=== PATIENT | female | born 1995 | race Caucasian/White ===

== ENCOUNTER 2017-06-08 01:12 | Emergency (ER) | payer OTHER ==
[2017-06-08 01:34] VITALS: BP 100/69; PULSE 103; TEMP 98.4; BMI 18.1
[2017-06-08] MEDS ORDERED: DOXYCYCLINE HYCLATE 100 MG CAPSULE PO ONE ×2 (01:38→01:41)
--- NOTE | 2017-06-08 01:38 | PDOC ---
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 Patient denies any trauma to the area. Denies exposure to new fluids, soap, or detergent. Denies fever, chills, or diaphoresis. Denies any other lesions. States she recently went to [place] for a week and returned a few days ago. The patient denies cough, SOB, chest pain, and palpitations. The patient denies abdominal pain, nausea, vomiting, and diarrhea. Allergies: cefazolin Social History: No alcohol, tobacco, or drug use reported. Past Surgical History: None reported PCP: Dr. Ulises Finch <Ciera Rivero - Last Filed: 06/08/17 01:52> - General History Source: Patient, Parent(s) <Vinnie Niño - Last Filed: 06/08/17 06:15> - General Chief Complaint: Rash Stated Complaint: RASH/FEET Time Seen by Provider: 06/08/17 01:33 Past History <Ciera Rivero - Last Filed: 06/08/17 01:52> - Past Medical History Cancer: Yes (Osteosarcoma CA on Lt leg) - Psycho/Social/Smoking Cessation Hx Suicidal Ideation: No Smoking History: Never smoked Have you smoked in the past 12 months: No Number of Cigarettes Smoked Daily: 0 Information on smoking cessation initiated: No Hx Alcohol Use: No Drug/Substance Use Hx: No Substance Use Type: None <Vinnie Niño - Last Filed: 06/08/17 06:15> - Past Medical History Allergies/Adverse Reactions: Allergies Allergy/AdvReac Type Severity Reaction Status Date / Time cefazolin Allergy Verified 06/08/17 01:30 Home Medications: Ambulatory Orders Doxycycline Hyclate [Vibramycin] 100 mg PO BID #20 capsule 06/08/17 Review of Systems - Review of Systems Able to Perform ROS?: Yes Comments:: 06/08/17 01:53 CONSTITUTIONAL: Absent: fever, no chills, no fatigue EYES: Absent: visual changes ENT: Absent: ear pain, no sore throat CARDIOVASCULAR: Absent: chest pain, no palpitations RESPIRATORY: Absent: cough, no SOB GI: Absent: abdominal pain, no nausea, no vomiting, no constipation, no diarrhea GENITOURINARY: Absent: dysuria, no frequency, no hematuria MUSCULOSKELETAL: Absent: back pain, no arthralgia, no myalgia SKIN: +rash on bilateral heels, predominantly the right heel NEURO: Absent: headache <RachelyayaCiera - Last Filed: 06/08/17 01:52> *Physical Exam - Vital Signs Last Vital Signs Temp Pulse Resp BP Pulse Ox 98.4 F 103 H 20 100/69 98 06/08/17 01:30 06/08/17 01:30 06/08/17 01:30 06/08/17 01:30 06/08/17 01:30 - Physical Exam Comments: 06/08/17 01:53 GENERAL: Well-appearing, well-nourished. No apparent distress. HEENT: Normocephalic, atraumatic. PERRL, EOM intact. CARDIOVASCULAR: Normal S1, S2. Regular rate and rhythm. PULMONARY: Clear to auscultation bilaterally. ABDOMEN: Soft, non-distended, non-tender. EXTREMITIES: Normal ROM in all four extremities. No gross deformities. SKIN: Blistering lesions to the right heel medial aspect that are weepy with yellow serous discharge. 2 dry lesions to the left inner heel. NEUROLOGICAL: No focal neurological deficits. <Ciera Rivero - Last Filed: 06/08/17 01:52> - Vital Signs Last Vital Signs Temp Pulse Resp BP Pulse Ox 98.4 F 103 H 20 100/69 98 06/08/17 01:30 06/08/17 01:30 06/08/17 01:30 06/08/17 01:30 06/08/17 01:30 <Vinnie Niño - Last Filed: 06/08/17 06:15> ED Treatment Course - Medications Given in the ED: ED Medications Discontinued Medications Generic Name Dose Route Start Last Admin Trade Name Freq PRN Reason Stop Dose Admin Doxycycline Hyclate 100 mg 06/08/17 01:38 06/08/17 01:46 Vibramycin - PO 06/08/17 01:39 100 mg ONCE ONE Administration <JosefaCiera - Last Filed: 06/08/17 01:52> Medical Decision Making - Medical Decision Making 06/08/17 06:14 Dr. Niño: The scribe's documentation has been prepared under my direction and personally reviewed by me in its entirery. I confirm that the note above accurately reflects all work, treatment, procedures, and medical decision making performed by me. <Vinnie Niño - Last Filed: 06/08/17 06:15> *DC/Admit/Observation/Transfer - Attestations Scribe Attestion: 06/08/17 01:53 Documentation prepared by Ciera Rivero, acting as medical staff specialist for Vinnie Niño MD/DO. <Ciera Rivero - Last Filed: 06/08/17 01:52> - Discharge Dispostion Admit: No <Vinnie Niño - Last Filed: 06/08/17 06:15> Diagnosis at time of Disposition: Impetigo - Discharge Dispostion Disposition: HOME - Prescriptions Prescriptions: Doxycycline Hyclate [Vibramycin] 100 mg PO BID #20 capsule - Referrals Referrals: Ulises Finch MD [Primary Care Provider] - - Patient Instructions Printed Discharge Instructions: DI for Wound Infection, DI for Impetigo Additional Instructions: Keep skin clean and dry. Wash with soap and water. TAke medication as directed. Follow up with your doctor for re-evaluation.
== END 2017-06-08 02:05 | disposition home or self-care (01) ==
LOC: JER 01:12
DX: L01.09 Other impetigo (principal); Z85.830 Personal history of malignant neoplasm of bone
CPT/HCPCS: 99281-25

== ENCOUNTER 2018-07-21 00:15 | Emergency (ER) | payer OTHER ==
[2018-07-21 00:25] VITALS: BP 93/58; PULSE 70; TEMP 98.4; BMI 15.9
--- NOTE | 2018-07-21 03:56 | PDOC ---
History of Present Illness - General Chief Complaint: Rash Stated Complaint: RASH Time Seen by Provider: 07/21/18 03:26 History Source: Patient - History of Present Illness Initial Comments: 07/21/18 03:50 22 year old female with itchy rash to whole body for 4 days. denies fever/ chills Past History - Past Medical History Allergies/Adverse Reactions: Allergies Allergy/AdvReac Type Severity Reaction Status Date / Time cefazolin Allergy Verified 07/21/18 00:24 Home Medications: Ambulatory Orders Doxycycline Hyclate [Vibramycin] 100 mg PO BID #20 capsule 06/08/17 Permethrin 5% Topical Cream [Elimite -] 1 applic TP ONCE #1 tube 07/21/18 Cancer: Yes (Osteosarcoma CA on Lt leg) COPD: No - Suicide/Smoking/Psychosocial Hx Smoking History: Never smoked Have you smoked in the past 12 months: No Number of Cigarettes Smoked Daily: 0 Hx Alcohol Use: No Drug/Substance Use Hx: No Substance Use Type: None *Physical Exam - Vital Signs Last Vital Signs Temp Pulse Resp BP Pulse Ox 98.4 F 70 18 93/58 L 97 07/21/18 00:17 07/21/18 00:17 07/21/18 00:17 07/21/18 00:17 07/21/18 00:17 - Physical Exam General Appearance: Yes: Appropriately Dressed Musculoskeletal: positive: Other (+ interphalangeal bites increased rash to groin, axilla , abdomen) Extremity: positive: Normal Capillary Refill, Normal Inspection, Normal Range of Motion Integumentary: positive: Normal Color, Dry, Warm Neurologic: positive: Fully Oriented, Alert *DC/Admit/Observation/Transfer Diagnosis at time of Disposition: Scabies - Discharge Dispostion Disposition: HOME - Prescriptions Prescriptions: Permethrin 5% Topical Cream [Elimite -] 1 applic TP ONCE #1 tube - Referrals - Patient Instructions Printed Discharge Instructions: DI for Scabies Additional Instructions: apply cream all over body and leave it on for 14-16 hours. wash all clothing, sheets and towels with hot water. - Post Discharge Activity
[2018-07-21] MEDS ORDERED: ONDANSETRON 4 MG/2 ML VIAL ONE (04:16)
== END 2018-07-21 04:48 | disposition home or self-care (01) ==
LOC: JER 00:15
DX: B86 Scabies (principal); Z85.830 Personal history of malignant neoplasm of bone
CPT/HCPCS: 99281-25

== ENCOUNTER 2018-07-30 00:19 | Emergency (ER) | payer OTHER ==
[2018-07-30 00:53] VITALS: BP 116/79; PULSE 89; TEMP 98.8; BMI 24.3
--- NOTE | 2018-07-30 01:37 | PDOC ---
Attending Attestation - Resident Resident Name: Hui VillanuevaEmi - ED Attending Attestation I have performed the following: I have examined & evaluated the patient, The case was reviewed & discussed with the resident, I agree w/resident's findings & plan, Exceptions are as noted - HPI HPI: 07/30/18 02:10 22y F hx of osteosarcoma in remission presents with complaint of pruitis. pt notes she was seen for pruritis a fe wweeks ago and dx with scabies. she was started on promethrin cream with improvement of her sypmtoms for a few days, but the pruritis returned later. and no wis more diffuse, on her chest, back, arms, legs. pt denie sany other complaints including pain. no on eelse itchy at home. no recent travel. does not share her bed with anyone. on exam pt has may macules/plaques with some areas of excoriations and lichineous areas on her neck. while she does have some lesions on skin folds, certain common areas of scabies is spared such as between her fingers, on the flexor/extensors of wrist/elbow - as the prompethrin improved her sypmtoms initially, still considering scabies - will try oral ivermectin now and again in a week will have pt fu with dermatology for further management will give her benadryl for her itching return precautions were discussed - Physicial Exam PE: 07/30/18 02:20 see above - Medical Decision Making 07/30/18 02:20 see above
--- NOTE | 2018-07-30 01:58 | PDOC ---
History of Present Illness - General Chief Complaint: Scabies Stated Complaint: SKIN PROBLEM Time Seen by Provider: 07/30/18 01:20 - History of Present Illness Initial Comments: 22yo F with history of osteosarcoma presenting with worsening rash. She came in on 07/21/18 for this and was diagnosed with scabies. Patient was prescribed with permethrin cream which she has almost finished. Since that time her rash has spread and covers her chest, neck, abdomen, genital area, buttocks, back, upper limbs, and lower limbs. The itching has also gotten worse. Bedding at home has been washed. Patient denies fever or chills. Past History - Past Medical History Allergies/Adverse Reactions: Allergies Allergy/AdvReac Type Severity Reaction Status Date / Time cefazolin Allergy Verified 07/30/18 00:42 Home Medications: Ambulatory Orders Permethrin 5% Topical Cream [Elimite -] 1 applic TP ONCE #1 tube 07/21/18 Ivermectin 3 mg PO ONCE #2 tablet 07/30/18 Loratadine [Allergy Relief] 10 mg PO DAILY #14 tablet 07/30/18 Permethrin 5% Topical Cream [Elimite -] 1 applic TP ONCE #1 tube 07/30/18 Cancer: Yes (Osteosarcoma CA on Lt leg) COPD: No - Suicide/Smoking/Psychosocial Hx Smoking History: Never smoked Have you smoked in the past 12 months: No Number of Cigarettes Smoked Daily: 0 Information on smoking cessation initiated: No Hx Alcohol Use: No Drug/Substance Use Hx: No Substance Use Type: None Review of Systems - Review of Systems Comments:: Constitutional: no fever, no chills Cardiovascular: no chest pain Respiratory: no cough, no shortness of breath Gastrointestinal: no abdominal pain, no nausea, no vomiting Musculoskeletal: no myalgia, no arthralgia Skin: +rash, +itching Neurologic: no headache, no dizziness *Physical Exam - Vital Signs Last Vital Signs Temp Pulse Resp BP Pulse Ox 98.8 F 89 20 116/79 98 07/30/18 00:43 07/30/18 00:43 07/30/18 00:43 07/30/18 00:43 07/30/18 00:43 - Physical Exam Comments: General: Awake, alert, and fully oriented, in no acute distress Head: no signs of trauma Eyes: EOMI, sclera anicteric Neck: Normal ROM, supple Lungs: Lungs clear, Normal breath sounds Cardio: Regular rhythm, S1 and S2 present Abdomen: Soft, nontender Extremities: Normal range of motion, Distal pulses present SKIN: multiple small, erythematous papules, excoriated without evidence of secondary infection on chest, neck, abdomen, genital area, buttocks, back, upper limbs, and lower limbs Neurologic: Cranial nerves II through XII grossly intact Medical Decision Making - Medical Decision Making 22yo F with history of osteosarcoma presenting with worsening rash. -Presentation consistent with scabies; due to the possibility of other etiology , will refer to dermatology -Ordered oral ivermectin and loratadine -Will send prescriptions for oral ivermectin and loratadine 07/30/18 02:12 test negative. Will discharge. Patient amenable to plan. 07/30/18 02:49 *DC/Admit/Observation/Transfer Diagnosis at time of Disposition: Rash - Discharge Dispostion Disposition: HOME Condition at time of disposition: Stable - Prescriptions Prescriptions: Ivermectin 3 mg PO ONCE #2 tablet Loratadine [Allergy Relief] 10 mg PO DAILY #14 tablet Permethrin 5% Topical Cream [Elimite -] 1 applic TP ONCE #1 tube - Referrals Referrals: Ulises Finch MD [Primary Care Provider] - Radha Mcgregor MD [Staff Physician] - - Patient Instructions Printed Discharge Instructions: DI for Scabies Additional Instructions: You came to the ED for a worsening rash. Prescriptions sent to your pharmacy: Take another dose of ivermectin in one week. Take loratadine for itching. Apply permethrin cream as instructed. We have referred you to a tobacco cutter, Dr. Mcgregor. Make an appointment by calling the number provided. RETURN to the ED if you experience symptoms of a secondary infection: redness or hardness, pain or tenderness, a red streak, yellow or green discharge, fever or chills. - Post Discharge Activity
[2018-07-30] MEDS ORDERED: IVERMECTIN 3 MG TABLET PO ONE (02:02)
[2018-07-30] MEDS ORDERED: LORATADINE 10 MG TABLET PO ONE (02:03)
[2018-07-30] MEDS ORDERED: LORATADINE 10 MG TABLET ONE (02:30)
== END 2018-07-30 02:59 | disposition home or self-care (01) ==
LOC: JER 00:19
DX: B86 Scabies (principal); R21 Rash and other nonspecific skin eruption
CPT/HCPCS: 84703; 99281-25

== ENCOUNTER 2018-08-05 01:44 | Emergency (ER) | payer OTHER ==
[2018-08-05 01:55] VITALS: BP 108/69; PULSE 106; TEMP 98.3; BMI 16.5
--- NOTE | 2018-08-05 02:01 | PDOC ---
History of Present Illness - General Chief Complaint: Rash Stated Complaint: RASH/FEVER Time Seen by Provider: 08/05/18 01:52 History Source: Patient Exam Limitations: No Limitations - History of Present Illness Initial Comments: 08/05/18 02:04 This is a 22-year-old female who comes in for evaluation of rash and fevers. Patient was diagnosed approximately one week ago with scabies and started on ivermectin and permethrin. Patient is taking 1 ivermectin tablet. Patient developed a low-grade fever tonight of 100.1. So family was concerned and brought her in for evaluation. Patient otherwise said that she is not itching anymore, but there is some discomfort from the rash. Patient was afebrile here in the emergency department. Patient is developmentally delayed and deaf. PAST MEDICAL HISTORY: no significant history PAST SURGICAL HISTORY: no significant history FAMILY HISTORY: no pertinant history SOCIAL HISTORY: Pt lives with family and is employed. MEDICATIONS: reviewed ALLERGIES: As per nursing notes ROS General: No fevers or chills, no weakness, no weight loss HEENT: No change in vision. No sore throat,. No ear pain CardioVascular: No chest pain or shortness of breath Respiratory:No cough, or wheezing. Gastrointestinal: no nausea, vomiting, diarrhea or constipation, No rectal bleeding Genitourinary: No dysuria, hematuria, or frequency Musculoskeletal: . No joint pain or swelling Neurologic: No headache, vertigo, dizziness or loss of consciousness Psychiatric: nor depression Skin: No rashes or easy bruising Endocrine: no increased thirst or abnormal weight change Allergic: no skin or latex allergy All other systems reviewed and normal GENERAL: The patient is awake, alert, and fully oriented, in no acute distress. HEAD: Normal with no signs of trauma. EARS: Bilateral ears are normal with normal external canal. and tympanic membranes. EYES: Pupils equal, round and reactive to light, extraocular movements intact, sclera anicteric, conjunctiva clear. EXTREMITIES: Normal range of motion, no edema. NEUROLOGICAL: Normal speech, normal gait. grossly intact PSYCH: Normal mood, normal affect. SKIN: Warm, Dry, normal turgor, there is a diffuse macular papular rash of her trunk, extremities and legs . There is no increase in warmth. There is no confluence, there is no crusting or discharge. Assessment and plan: This is a 22-year-old female being treated for scabies. Patient scheduled for her ivermectin was changed to a more frequent schedule of day one, 2, 8, 9, 15, 22 and 29, Patient was instructed to follow-up with her primary care doctor in a lathe hand. Past History - Past Medical History Allergies/Adverse Reactions: Allergies Allergy/AdvReac Type Severity Reaction Status Date / Time cefazolin Allergy Verified 07/30/18 00:42 Home Medications: Ambulatory Orders Permethrin 5% Topical Cream [Elimite -] 1 applic TP ONCE #1 tube 07/21/18 Ivermectin 3 mg PO ONCE #2 tablet 07/30/18 Loratadine [Allergy Relief] 10 mg PO DAILY #14 tablet 07/30/18 Ivermectin 3 mg PO DAILY #7 tablet 08/05/18 Cancer: Yes (Osteosarcoma CA on Lt leg) COPD: No CHF: No - Immunization History Immunization Up to Date: Yes - Suicide/Smoking/Psychosocial Hx Smoking History: Never smoked Have you smoked in the past 12 months: No Number of Cigarettes Smoked Daily: 0 Hx Alcohol Use: No Drug/Substance Use Hx: No Substance Use Type: None *Physical Exam - Vital Signs Last Vital Signs Temp Pulse Resp BP Pulse Ox 98.3 F 106 H 16 108/69 100 08/05/18 01:50 08/05/18 01:50 08/05/18 01:50 08/05/18 01:50 08/05/18 01:50 *DC/Admit/Observation/Transfer Diagnosis at time of Disposition: Scabies infestation - Discharge Dispostion Disposition: HOME Condition at time of disposition: Stable Decision to Admit order: No - Prescriptions Prescriptions: Ivermectin 3 mg PO DAILY #7 tablet - Referrals Referrals: Ulises Finch MD [Primary Care Provider] - - Patient Instructions Additional Instructions: Continue the permethrin and take the ivermectin 1 tablet today and then on the following scheduled day 2, 8, 9, 15, 22, and 29. It is very important that you be seen by a lathe hand or your primary care doctor as soon as possible. You can take Tylenol or Motrin as needed for pain. Return to the emergency department immediately with ANY new, persistent or worsening symptoms. Continue any medications as previously prescribed by your physician. You should follow up with your primary doctor as soon as possible regarding today's emergency department visit. . Please make sure your doctor reviews the results of your emergency evaluation. Thank you for coming to the Emergency Department today for your care. It was a pleasure to see you today. Please note that your evaluation is INCOMPLETE until you follow-up with your doctor. - Post Discharge Activity
== END 2018-08-05 02:04 | disposition home or self-care (01) ==
LOC: FER 01:44
DX: B86 Scabies (principal)
CPT/HCPCS: 99281-25

== ENCOUNTER 2024-11-05 15:18 | Emergency (ER) | payer OTHER ==
[2024-11-05 16:35] VITALS: BP 98/65; RESP 20; BMI 12.5
[2024-11-05] MEDS ORDERED: ACETAMINOPHEN 325 MG TABLET (FP) ONE (16:50)
[2024-11-05] MEDS: ACETAMINOPHEN 325 MG TABLET (FP) PO ONE (16:52)
[2024-11-05 17:35] VITALS: PULSE 115; TEMP 101.6
[2024-11-05 19:47] LABS: THROAT:GRP A STREP NOT DETECTED (NOTDETECTED)
== END 2024-11-05 17:46 | disposition home or self-care (01) ==
LOC: FER 15:18
DX: J10.1 Influenza due to other identified influenza virus with other respiratory manifestations (principal); R50.9 Fever, unspecified; R05.9 Cough, unspecified; R09.81 Nasal congestion; M79.10 Myalgia, unspecified site; B34.9 Viral infection, unspecified; Z20.822 Contact with and (suspected) exposure to COVID-19
CPT/HCPCS: 0241U-QW; 87651; 99283-25